=== PATIENT | male | born 1980 | race Caucasian/White ===

== ENCOUNTER 2017-09-16 19:08 | Emergency (ER) | payer OTHER ==
[~2017-09-16] VITALS: Ht 175.3 cm; Wt 80.7 kg
[2017-09-16] MEDS ORDERED: CITA20TA5 PO (19:32)
[2017-09-16 19:51] LABS: MEAN CORPUSCULAR HEMOGLOBIN 34.4 pg (27.5-34.5); MEAN CORPUSCULAR HGB CONC 34.4 g/dL (33.2-36.2); MEAN CORPUSCULAR VOLUME 100.1 fL (81-97); MEAN PLATELET VOLUME 7.5 fL (7.4-10.4); PLATELET COUNT 372 x10^3/uL (130-400); RED CELL DISTRIBUTION WIDTH 15.1 % (9.4-14.8)
[2017-09-16 19:55] LABS: ALANINE AMINOTRANSFERASE 30 U/L (12-78); ALBUMIN 3.9 g/dL (3.4-5.0); ANION GAP 7 mmol/L (5-15); CALCIUM 8.9 mg/dL (8.5-10.1); CHLORIDE 106 mmol/L (98-107); CREATININE 1.15 mg/dL (0.7-1.3)
[2017-09-16 19:57] LABS: ALKALINE PHOSPHATASE 73 U/L (45-117); BILIRUBIN,TOTAL 0.2 mg/dL (0.2-1.0); TOTAL PROTEIN 7.3 g/dL (6.4-8.2)
[2017-09-16 19:58] LABS: BASOPHILS # (AUTO) 0.04 x10^3/uL (0-0.1); BASOPHILS % (AUTO) 0 % (0-1); EOSINOPHILS # (AUTO) 0.48 x10^3/uL (0-0.4); EOSINOPHILS % (AUTO) 4 % (1-7); LYMPHOCYTES # (AUTO) 3.64 x10^3/uL (1-3.4); LYMPHOCYTES % (AUTO) 28 % (22-44); MONOCYTES # (AUTO) 0.88 x10^3/uL (0.2-0.8); MONOCYTES % (AUTO) 7 % (2-9); NEUTROPHILS # (AUTO) 7.99 x10^3/uL (1.8-6.8); NEUTROPHILS % (AUTO) 61 % (42-75)
[2017-09-16 19:59] LABS: MD NO
[2017-09-16 21:34] VITALS: BP 115/87
== END 2017-09-16 21:36 | disposition home or self-care (01) ==
LOC: ED 21:05
DX: R20.2 Paresthesia of skin (principal); D72.829 Elevated white blood cell count, unspecified; R11.2 Nausea with vomiting, unspecified
CPT/HCPCS: 36415; 70450; 80053; 85025; 93005; 99285

== ENCOUNTER 2017-11-12 08:20 | Inpatient (IN) | payer OTHER ==
[~2017-11-12] VITALS: Ht 175.3 cm; Wt 79.6 kg
[~2017-11-12 08:20] MED LIST: CITA20TA6 PO
[2017-11-12 10:06] VITALS: BP 102/67
[2017-11-12] MEDS ORDERED: HYDR-3307 PO (10:07)
[2017-11-12] MEDS ORDERED: POLYETHYLENE GLYCOL 17 GM PACKET PO PRN (11:00)
[2017-11-12] MEDS ORDERED: PLEASE ENTER HEIGHT AND WEIGHT MC SCH (11:00)
[2017-11-12] MEDS ORDERED: BISACODYL 10 MG SUPP PR PRN (11:00)
[2017-11-12] MEDS ORDERED: ACETAMINOPHEN 325 MG TABLET PO PRN (11:00)
[2017-11-12] MEDS ORDERED: hydrALAzine 20 MG/ML, 1ML IVPush PRN (11:00)
[2017-11-12] MEDS ORDERED: DOCUSATE 100 MG CAPSULE PO PRN (11:00)
[2017-11-12] MEDS ORDERED: ONDANSETRON 2MG/ML, 2ML IVPush PRN (11:00)
[2017-11-12 11:34] LABS: BASOPHILS # (AUTO) 0.06 x10^3/uL (0-0.1); BASOPHILS % (AUTO) 1 % (0-1); EOSINOPHILS # (AUTO) 0.36 x10^3/uL (0-0.4); EOSINOPHILS % (AUTO) 4 % (1-7); LYMPHOCYTES # (AUTO) 2.69 x10^3/uL (1-3.4); LYMPHOCYTES % (AUTO) 29 % (22-44); MD NO; MEAN CORPUSCULAR HEMOGLOBIN 33.7 pg (27.5-34.5); MEAN CORPUSCULAR HGB CONC 34.6 g/dL (33.2-36.2); MEAN CORPUSCULAR VOLUME 97.5 fL (81-97); MEAN PLATELET VOLUME 7.4 fL (7.4-10.4); MONOCYTES # (AUTO) 0.88 x10^3/uL (0.2-0.8); MONOCYTES % (AUTO) 9 % (2-9); NEUTROPHILS # (AUTO) 5.42 x10^3/uL (1.8-6.8); NEUTROPHILS % (AUTO) 58 % (42-75); PLATELET COUNT 358 x10^3/uL (130-400); RED BLOOD COUNT 4.31 x10^6/uL (4.38-5.82); RED CELL DISTRIBUTION WIDTH 12.9 % (9.4-14.8)
[2017-11-12 11:48] LABS: ALBUMIN 3.1 g/dL (3.4-5.0); ANION GAP 8 mmol/L (5-15); CALCIUM 8.6 mg/dL (8.5-10.1); CHLORIDE 107 mmol/L (98-107)
[2017-11-12 11:53] LABS: ALANINE AMINOTRANSFERASE 29 U/L (12-78); ALKALINE PHOSPHATASE 75 U/L (45-117); BILIRUBIN,TOTAL 0.4 mg/dL (0.2-1.0); CREATININE 0.99 mg/dL (0.7-1.3); TOTAL PROTEIN 6.2 g/dL (6.4-8.2)
[2017-11-12] MEDS: GABAPENTIN 300 MG CAPSULE PO SCH ×3 (12:23→20:26)
[2017-11-12] MEDS: ENOXAPARIN 40 MG/0.4 ML SQ SCH (12:23)
[2017-11-12] MEDS ORDERED: CALCIUM CHLORIDE 13.6 MEQ/10 ML IV PRN (14:30)
[2017-11-12] MEDS ORDERED: ALBUMIN HUMAN 5% 3,000 ML IV PRN (14:30)
[2017-11-12] MEDS: HYDROcodone/APAP 10/325 MG TABLET PO SCH ×2 (14:49→19:28)
[2017-11-12 14:50] VITALS: BP 106/73
[2017-11-12 18:56] VITALS: BP 106/70
[2017-11-12] MEDS: CITALOPRAM 20 MG TABLET PO SCH (20:26)
[2017-11-12] MEDS: SODIUM CHLORIDE FLUSH 10ML SYR IVF SCH (20:27)
[2017-11-13 00:58] VITALS: BP 104/67
[2017-11-13 04:47] LABS: BASOPHILS # (AUTO) 0.06 x10^3/uL (0-0.1); BASOPHILS % (AUTO) 1 % (0-1); EOSINOPHILS # (AUTO) 0.27 x10^3/uL (0-0.4); EOSINOPHILS % (AUTO) 3 % (1-7); LYMPHOCYTES # (AUTO) 2.92 x10^3/uL (1-3.4); LYMPHOCYTES % (AUTO) 31 % (22-44); MD NO; MEAN CORPUSCULAR HEMOGLOBIN 33.6 pg (27.5-34.5); MEAN CORPUSCULAR HGB CONC 34.2 g/dL (33.2-36.2); MEAN CORPUSCULAR VOLUME 98.2 fL (81-97); MEAN PLATELET VOLUME 7.8 fL (7.4-10.4); MONOCYTES # (AUTO) 0.95 x10^3/uL (0.2-0.8); MONOCYTES % (AUTO) 10 % (2-9); NEUTROPHILS # (AUTO) 5.37 x10^3/uL (1.8-6.8); NEUTROPHILS % (AUTO) 56 % (42-75); PLATELET COUNT 300 x10^3/uL (130-400); RED BLOOD COUNT 4.49 x10^6/uL (4.38-5.82)
[2017-11-13 04:57] LABS: ANION GAP 7 mmol/L (5-15); CALCIUM 7.9 mg/dL (8.5-10.1); CHLORIDE 113 mmol/L (98-107); CREATININE 0.91 mg/dL (0.7-1.3)
[2017-11-13 07:35] VITALS: BP 100/66
[2017-11-13] MEDS: SODIUM CHLORIDE FLUSH 10ML SYR IVF SCH ×2 (09:00→20:00)
[2017-11-13] MEDS: GABAPENTIN 300 MG CAPSULE PO SCH ×2 (09:22→15:52)
[2017-11-13] MEDS: HYDROcodone/APAP 10/325 MG TABLET PO SCH ×2 (09:22→15:52)
[2017-11-13] MEDS: ALBUMIN HUMAN 5% 3,000 ML IV PRN (10:05)
[2017-11-13] MEDS: CALCIUM CHLORIDE 13.6 MEQ/10 ML IV PRN (10:05)
[2017-11-13 14:01] VITALS: BP 105/72
[2017-11-13] MEDS: ENOXAPARIN 40 MG/0.4 ML SQ SCH (15:52)
[2017-11-13 18:32] VITALS: BP 116/70
[2017-11-13] MEDS: CITALOPRAM 20 MG TABLET PO SCH (20:00)
[2017-11-13] MEDS: NICOTINE 7 MG/24 HR PATCH.TD24 TD SCH (20:00)
[2017-11-14 00:04] VITALS: BP 105/66
[2017-11-14 01:06] VITALS: BP 119/84
[2017-11-14 07:31] VITALS: BP 117/80
[2017-11-14] MEDS: SODIUM CHLORIDE FLUSH 10ML SYR IVF SCH ×2 (08:31→21:13)
[2017-11-14] MEDS: GABAPENTIN 300 MG CAPSULE PO SCH ×4 (08:31→21:13)
[2017-11-14] MEDS: HYDROcodone/APAP 10/325 MG TABLET PO SCH ×4 (08:31→21:13)
[2017-11-14 09:44] LABS: MEAN CORPUSCULAR HEMOGLOBIN 33.9 pg (27.5-34.5); MEAN CORPUSCULAR HGB CONC 34.9 g/dL (33.2-36.2); MEAN CORPUSCULAR VOLUME 97.3 fL (81-97); MEAN PLATELET VOLUME 7.9 fL (7.4-10.4); PLATELET COUNT 319 x10^3/uL (130-400); RED BLOOD COUNT 4.74 x10^6/uL (4.38-5.82); RED CELL DISTRIBUTION WIDTH 12.9 % (9.4-14.8)
[2017-11-14 10:01] LABS: MD YES
[2017-11-14 10:03] LABS: BANDS%(MANUAL) 6 % (0-7)
[2017-11-14 10:04] LABS: BAND#(MANUAL) 0.74 x10^3/uL; BASOS#(MANUAL) 0.12 x10^3/uL (0-0.1); BASOS% (MANUAL) 1 % (0-1); EOS#(MANUAL) 0.37 x10^3/uL (0.0-0.4); EOS% (MANUAL) 3 % (1-7); LYMPH#(MANUAL) 2.85 x10^3/uL (1-3.4); LYMPHS% (MANUAL) 23 % (22-44); MONOS#(MANUAL) 0.62 x10^3/uL (0.3-2.7); MONOS% (MANUAL) 5 % (2-9); SEG#(MANUAL) 7.69 x10^3/uL (1.8-6.8); SEGS% (MANUAL) 62 % (42-75)
[2017-11-14 10:05] LABS: <PLATELET ESTIMATE> ADEQUATE; <PLT MORPHOLOGY> NORMAL PLT MORPH; <RBC MORPHOLOGY> NORMAL
[2017-11-14] MEDS: ALBUMIN HUMAN 5% 3,000 ML IV PRN (10:32)
[2017-11-14] MEDS: CALCIUM CHLORIDE 13.6 MEQ/10 ML IV PRN (10:32)
[2017-11-14] MEDS: ENOXAPARIN 40 MG/0.4 ML SQ SCH (13:43)
[2017-11-14 14:31] VITALS: BP 115/76
[2017-11-14 19:08] VITALS: BP 119/84
[2017-11-14] MEDS: NICOTINE 7 MG/24 HR PATCH.TD24 TD SCH (21:13)
[2017-11-14] MEDS: CITALOPRAM 20 MG TABLET PO SCH (21:13)
[2017-11-15 01:28] VITALS: BP 105/64
[2017-11-15 03:52] LABS: BASOPHILS # (AUTO) 0.05 x10^3/uL (0-0.1); BASOPHILS % (AUTO) 0 % (0-1); EOSINOPHILS % (AUTO) 3 % (1-7); LYMPHOCYTES # (AUTO) 3.06 x10^3/uL (1-3.4); LYMPHOCYTES % (AUTO) 26 % (22-44); MD NO; MEAN CORPUSCULAR HEMOGLOBIN 33.5 pg (27.5-34.5); MEAN CORPUSCULAR HGB CONC 34.4 g/dL (33.2-36.2); MEAN CORPUSCULAR VOLUME 97.3 fL (81-97); MEAN PLATELET VOLUME 7.8 fL (7.4-10.4); MONOCYTES # (AUTO) 1.24 x10^3/uL (0.2-0.8); MONOCYTES % (AUTO) 10 % (2-9); NEUTROPHILS # (AUTO) 7.28 x10^3/uL (1.8-6.8); NEUTROPHILS % (AUTO) 61 % (42-75); PLATELET COUNT 291 x10^3/uL (130-400); RED BLOOD COUNT 4.78 x10^6/uL (4.38-5.82); RED CELL DISTRIBUTION WIDTH 13.3 % (9.4-14.8)
[2017-11-15 03:58] LABS: ALBUMIN 4.3 g/dL (3.4-5.0); ANION GAP 9 mmol/L (5-15); CALCIUM 8.2 mg/dL (8.5-10.1); CHLORIDE 112 mmol/L (98-107); CREATININE 0.89 mg/dL (0.7-1.3)
[2017-11-15 06:45] VITALS: BP 111/75
[2017-11-15] MEDS ORDERED: ALBUMIN HUMAN 5%, 25G/500ML IV ONE (08:30)
[2017-11-15] MEDS: HYDROcodone/APAP 10/325 MG TABLET PO SCH ×3 (09:14→20:13)
[2017-11-15] MEDS: GABAPENTIN 300 MG CAPSULE PO SCH ×3 (09:14→21:05)
[2017-11-15] MEDS: SODIUM CHLORIDE FLUSH 10ML SYR IVF SCH ×2 (09:15→20:14)
[2017-11-15] MEDS: NICOTINE 14MG/24 HR PATCH.TD24 TD SCH (09:20)
[2017-11-15] MEDS: CALCIUM CHLORIDE 13.6 MEQ/10 ML IV PRN (10:08)
[2017-11-15 12:36] VITALS: BP 119/84
[2017-11-15] MEDS: ENOXAPARIN 40 MG/0.4 ML SQ SCH (13:48)
[2017-11-15] MEDS ORDERED: HYDROcodone/APAP 10/325 MG TABLET PO SCH (14:00)
[2017-11-15 20:00] VITALS: BP 119/82
[2017-11-15] MEDS: CITALOPRAM 20 MG TABLET PO SCH (20:13)
[2017-11-16 02:00] VITALS: BP 91/60
[2017-11-16 07:14] VITALS: BP 105/69
[2017-11-16] MEDS: SODIUM CHLORIDE FLUSH 10ML SYR IVF SCH (08:10)
[2017-11-16] MEDS: HYDROcodone/APAP 10/325 MG TABLET PO SCH ×2 (08:10→13:05)
[2017-11-16] MEDS: GABAPENTIN 300 MG CAPSULE PO SCH (08:10)
[2017-11-16] MEDS: NICOTINE 14MG/24 HR PATCH.TD24 TD SCH (08:11)
[2017-11-16] MEDS ORDERED: ALBUMIN HUMAN 5%, 25G/500ML IV ONE (08:30)
[2017-11-16 08:43] LABS: BASOPHILS # (AUTO) 0.08 x10^3/uL (0-0.1); BASOPHILS % (AUTO) 1 % (0-1); EOSINOPHILS % (AUTO) 1 % (1-7); LYMPHOCYTES # (AUTO) 2.35 x10^3/uL (1-3.4); LYMPHOCYTES % (AUTO) 16 % (22-44); MD NO; MEAN CORPUSCULAR HEMOGLOBIN 33.1 pg (27.5-34.5); MEAN CORPUSCULAR HGB CONC 34.1 g/dL (33.2-36.2); MEAN CORPUSCULAR VOLUME 97.1 fL (81-97); MEAN PLATELET VOLUME 7.9 fL (7.4-10.4); MONOCYTES # (AUTO) 1.41 x10^3/uL (0.2-0.8); MONOCYTES % (AUTO) 9 % (2-9); NEUTROPHILS % (AUTO) 73 % (42-75); PLATELET COUNT 282 x10^3/uL (130-400); RED BLOOD COUNT 4.73 x10^6/uL (4.38-5.82)
[2017-11-16] MEDS ORDERED: GABA300C10 PO (09:16)
[2017-11-16] MEDS: CALCIUM CHLORIDE 13.6 MEQ/10 ML IV PRN (09:30)
[2017-11-16 12:24] VITALS: BP 120/79
[2017-11-16] MEDS: ENOXAPARIN 40 MG/0.4 ML SQ SCH (13:00)
== END 2017-11-16 13:40 | disposition home or self-care (01) | DRG 59 ==
LOC: 4WST 08:34 → DCLOUNGE 11-16 11:16
PROVIDERS: ADMIT Internal Medicine; ATTEND Family Medicine
PROC: 02HV33Z Insertion of Infusion Device into Superior Vena Cava, Percutaneous Approach (ICD-10-PCS; principal; 2017-11-12)
PROC: B548ZZA Ultrasonography of Superior Vena Cava, Guidance (ICD-10-PCS; 2017-11-12)
PROC: 6A551Z3 Pheresis of Plasma, Multiple (ICD-10-PCS; 2017-11-16)
DX: G35 Multiple sclerosis (principal); G36.0 Neuromyelitis optica [Devic]; E44.0 Moderate protein-calorie malnutrition; E87.3 Alkalosis; G95.9 Disease of spinal cord, unspecified; F17.210 Nicotine dependence, cigarettes, uncomplicated; F32.9 Major depressive disorder, single episode, unspecified; Z79.899 Other long term (current) drug therapy; Z91.81 History of falling; Z68.25 Body mass index [BMI] 25.0-25.9, adult; G62.9 Polyneuropathy, unspecified
CPT/HCPCS: 36415; 36514; 36556; 76937; 77001; 80048; 80053; 82040; 85025; 86704; 86706; 86803; 87340; J1650; P9045; C1751; J1642

== ENCOUNTER 2018-07-02 18:07 | Inpatient (IN) | payer OTHER ==
[~2018-07-02] VITALS: Ht 175.3 cm; Wt 79.1 kg
[~2018-07-02 18:07] MED LIST changes: +GABA300C10 PO; +HYDR-3307 PO
--- NOTE | 2018-07-02 18:28 | NUR ---
FIRST CONTACT WITH PATIENT. IN TO ASSESS PATIENT, PT NOT IN GOWN. PT ASKED TO CHANGE INTO GOWN. THIS RN LEFT ROOM FOR PRIVACY
--- NOTE | 2018-07-02 18:31 | NUR ---
38 Y/O MALE PRESENTS TO ED WITH C/O COUGH "SIX MONTHS AGO I GOT DIAGNOSED WITH TRANSVERSE MYLEITIS. I WENT TO [place], GOT A COUGH AND CAME HOME AND THIS COUGH ISN'T GOING AWAY. IT'S BEEN FOR ABOUT 10 DAYS. WHEN I LAY DOWN IT'S ALL GURGGLY. I WANT TO MAKE SURE IT'S NOT PNA. MY TEMPERATURE IS OFF AND ON." EDMD BEDSIDE. NO ACUTE DISTRESS NOTED. PT PLACED ON CONT PULSE OX,NIBP. NO C/O N/V/D, TRAUMA, SYNCOPE, CP.
--- NOTE | 2018-07-02 18:39 | NUR ---
PT PLACED ON [employer] SUPERINTENDENT.
--- NOTE | 2018-07-02 18:41 | NUR ---
PT TO IMAGING
[2018-07-02] MEDS ORDERED: ACETAMINOPHEN 325 MG TABLET ONE (18:44)
--- NOTE | 2018-07-02 18:47 | NUR ---
PT BACK FROM IMAGING
[2018-07-02] MEDS ORDERED: ACETAMINOPHEN 325 MG TABLET PO ONE (19:00)
[2018-07-02] MEDS ORDERED: CEFTRIAXONE 1,000 MG in SODIUM CHLORIDE 0.9% 50 ML IVPB ONE (19:00)
[2018-07-02] MEDS ORDERED: SODIUM CHLORIDE FLUSH 10ML SYR IVF ONE (19:00)
[2018-07-02] MEDS ORDERED: AZITHROMYCIN 500 MG in SODIUM CHLORIDE 0.9% 250 ML IVPB ONE (19:00)
--- NOTE | 2018-07-02 19:00 | NUR ---
BEDSIDE REPORT TO SURENDRA CAPELLAN.
[2018-07-02 19:16] LABS: MEAN CORPUSCULAR HEMOGLOBIN 30.7 pg (27.5-34.5); MEAN CORPUSCULAR HGB CONC 33.9 g/dL (33.2-36.2); MEAN CORPUSCULAR VOLUME 90.6 fL (81-97); MEAN PLATELET VOLUME 6.4 fL (7.4-10.4); PLATELET COUNT 958 x10^3/uL (130-400); RED BLOOD COUNT 4.02 x10^6/uL (4.38-5.82); RED CELL DISTRIBUTION WIDTH 14.5 % (9.4-14.8)
[2018-07-02 19:22] LABS: INTERNATIONAL NORMALIZED RATIO 1.22 (0.93-1.1); PROTHROMBIN TIME 12.7 Seconds (9.6-11.5)
[2018-07-02 19:23] LABS: ALANINE AMINOTRANSFERASE 72 U/L (12-78); ALBUMIN 2.6 g/dL (3.4-5.0); ANION GAP 9 mmol/L (5-15); CALCIUM 8.5 mg/dL (8.5-10.1); CHLORIDE 104 mmol/L (98-107)
[2018-07-02 19:26] LABS: ALKALINE PHOSPHATASE 99 U/L (45-117); BILIRUBIN,TOTAL 0.5 mg/dL (0.2-1.0); CREATININE 1.12 mg/dL (0.7-1.3)
[2018-07-02 19:36] LABS: MD YES
[2018-07-02 19:38] LABS: <RBC MORPHOLOGY> NORMAL; BAND#(MANUAL) 1.58 x10^3/uL; BANDS%(MANUAL) 7 % (0-7); LYMPH#(MANUAL) 2.71 x10^3/uL (1-3.4); LYMPHS% (MANUAL) 12 % (22-44); MONOS#(MANUAL) 0.23 x10^3/uL (0.3-2.7); MONOS% (MANUAL) 1 % (2-9); SEG#(MANUAL) 18.08 x10^3/uL (1.8-6.8); SEGS% (MANUAL) 80 % (42-75)
[2018-07-02 19:39] LABS: <PLATELET ESTIMATE> INCREASED; <PLT MORPHOLOGY> NORMAL PLT MORPH
[2018-07-02] MEDS ORDERED: LAMO200T3 PO (19:44)
--- NOTE | 2018-07-02 19:52 | NUR ---
REPORT OF PT FROM SURENDRA VERDUGO. ASSUMING CARE OF PT AT THIS TIME. IV ACCESS OBTAINED. PT MEDICATED FOR FEVER PER JUN.
[2018-07-02] MEDS ORDERED: SODIUM CHLORIDE FLUSH 10ML SYR IVF PRN (20:00)
--- NOTE | 2018-07-02 20:18 | NUR ---
REPORT GIVEN TO YAEL AGOSTO, PT READY FOR TRANSPORT TO FLOOR
[2018-07-02 20:48] VITALS: BP 99/67
[2018-07-02] MEDS ORDERED: ACETAMINOPHEN 325 MG TABLET PO PRN (21:00)
[2018-07-02] MEDS ORDERED: ONDANSETRON ODT 4 MG PO PRN (21:00)
[2018-07-02] MEDS ORDERED: CEFTRIAXONE PMX 1GM/50ML 50 ML IV ONE (21:00)
[2018-07-02] MEDS ORDERED: TEMAZEPAM 15 MG CAPSULE PO PRN (21:00)
[2018-07-02] MEDS ORDERED: DOCUSATE 100 MG CAPSULE PO PRN (21:00)
[2018-07-02] MEDS ORDERED: CITALOPRAM 20 MG TABLET PO SCH (21:00)
[2018-07-02] MEDS: SODIUM CHLORIDE 0.9% 1,000 ML IV SCH (21:36)
[2018-07-02] MEDS: CEFTRIAXONE PMX 2GM/50ML 50 ML IV SCH (21:44)
[2018-07-02] MEDS: NICOTINE 14MG/24 HR PATCH.TD24 TD SCH (22:05)
[2018-07-02] MEDS: GABAPENTIN 300 MG CAPSULE PO SCH (22:05)
[2018-07-02] MEDS: OXYcodone/APAP 10/325MG TABLET PO PRN (22:53)
[2018-07-02] MEDS: AZITHROMYCIN 500 MG in SODIUM CHLORIDE 0.9% 250 ML IV SCH (22:54)
[2018-07-02] MEDS: LAMOTRIGINE 200 MG TABLET PO SCH (23:02)
[2018-07-03 01:43] VITALS: BP 109/71
[2018-07-03 03:18] LABS: MICROSCOPIC NOT IND
[2018-07-03 03:21] LABS: CULTURE INDICATED? NO
[2018-07-03 04:33] LABS: MEAN CORPUSCULAR HEMOGLOBIN 30.5 pg (27.5-34.5); MEAN CORPUSCULAR HGB CONC 33.6 g/dL (33.2-36.2); MEAN CORPUSCULAR VOLUME 90.7 fL (81-97); MEAN PLATELET VOLUME 6.5 fL (7.4-10.4); PLATELET COUNT 751 x10^3/uL (130-400); RED BLOOD COUNT 3.46 x10^6/uL (4.38-5.82); RED CELL DISTRIBUTION WIDTH 14.3 % (9.4-14.8)
[2018-07-03 04:50] LABS: ANION GAP 5 mmol/L (5-15); CALCIUM 7.7 mg/dL (8.5-10.1); CHLORIDE 107 mmol/L (98-107); CREATININE 1.03 mg/dL (0.7-1.3)
[2018-07-03 05:39] LABS: MD YES
[2018-07-03 05:41] LABS: BANDS%(MANUAL) 5 % (0-7); EOS% (MANUAL) 3 % (1-7); LYMPH#(MANUAL) 1.99 x10^3/uL (1-3.4); LYMPHS% (MANUAL) 10 % (22-44); MONOS#(MANUAL) 1.39 x10^3/uL (0.3-2.7); MONOS% (MANUAL) 7 % (2-9); SEG#(MANUAL) 14.93 x10^3/uL (1.8-6.8); SEGS% (MANUAL) 75 % (42-75)
[2018-07-03 05:43] LABS: <PLATELET ESTIMATE> INCREASED; <PLT MORPHOLOGY> NORMAL PLT MORPH; POLYCHROMASIA 1+
[2018-07-03] MEDS: OXYcodone/APAP 10/325MG TABLET PO PRN ×4 (08:17→23:28)
[2018-07-03] MEDS: GABAPENTIN 300 MG CAPSULE PO SCH ×3 (08:18→21:26)
[2018-07-03] MEDS: SODIUM CHLORIDE 0.9% 1,000 ML IV SCH ×2 (08:18→21:26)
[2018-07-03] MEDS: CITALOPRAM 20 MG TABLET PO SCH (08:18)
[2018-07-03] MEDS ORDERED: LAMOTRIGINE 200 MG TABLET PO SCH (09:00)
[2018-07-03 13:00] VITALS: BP 98/65
[2018-07-03 19:31] VITALS: BP 117/71
[2018-07-03] MEDS: LAMOTRIGINE 200 MG TABLET PO SCH (21:25)
[2018-07-03] MEDS: NICOTINE 14MG/24 HR PATCH.TD24 TD SCH (21:25)
[2018-07-03] MEDS: CEFTRIAXONE PMX 2GM/50ML 50 ML IV SCH (21:35)
[2018-07-03] MEDS: AZITHROMYCIN 500 MG in SODIUM CHLORIDE 0.9% 250 ML IV SCH (23:28)
[2018-07-04] MEDS: SODIUM CHLORIDE 0.9% 1,000 ML IV SCH ×3 (05:43→21:23)
[2018-07-04 05:48] VITALS: BP 100/66
[2018-07-04 07:58] LABS: MEAN CORPUSCULAR HEMOGLOBIN 29.8 pg (27.5-34.5); MEAN CORPUSCULAR HGB CONC 32.5 g/dL (33.2-36.2); MEAN CORPUSCULAR VOLUME 91.6 fL (81-97); MEAN PLATELET VOLUME 6.3 fL (7.4-10.4); PLATELET COUNT 793 x10^3/uL (130-400); RED BLOOD COUNT 3.55 x10^6/uL (4.38-5.82); RED CELL DISTRIBUTION WIDTH 14.8 % (9.4-14.8)
[2018-07-04 08:21] VITALS: BP 97/60
[2018-07-04 08:23] LABS: BASOPHILS # (AUTO) 0.05 x10^3/uL (0-0.1); BASOPHILS % (AUTO) 0 % (0-1); EOSINOPHILS # (AUTO) 0.12 x10^3/uL (0-0.4); EOSINOPHILS % (AUTO) 1 % (1-7); LYMPHOCYTES # (AUTO) 1.88 x10^3/uL (1-3.4); LYMPHOCYTES % (AUTO) 12 % (22-44); MD SCAN; MONOCYTES # (AUTO) 0.97 x10^3/uL (0.2-0.8); MONOCYTES % (AUTO) 6 % (2-9); NEUTROPHILS # (AUTO) 13.24 x10^3/uL (1.8-6.8); NEUTROPHILS % (AUTO) 82 % (42-75)
[2018-07-04] MEDS: OXYcodone/APAP 10/325MG TABLET PO PRN ×4 (08:59→21:28)
[2018-07-04] MEDS: CITALOPRAM 20 MG TABLET PO SCH (08:59)
[2018-07-04] MEDS: GABAPENTIN 300 MG CAPSULE PO SCH ×3 (08:59→21:22)
[2018-07-04] MEDS ORDERED: MORPHINE SULFATE 4 MG/ML, 1ML IVPush ONE (09:30)
[2018-07-04] MEDS: LIDODERM 5% PATCH TD PRN (09:40)
[2018-07-04 13:07] VITALS: BP 96/61
[2018-07-04] MEDS: NICOTINE 14MG/24 HR PATCH.TD24 TD SCH (21:22)
[2018-07-04] MEDS: LAMOTRIGINE 200 MG TABLET PO SCH (21:23)
[2018-07-04] MEDS: CEFTRIAXONE PMX 2GM/50ML 50 ML IV SCH (21:28)
[2018-07-04 21:36] VITALS: BP 107/73
[2018-07-04] MEDS: AZITHROMYCIN 500 MG in SODIUM CHLORIDE 0.9% 250 ML IV SCH (23:25)
[2018-07-05] MEDS: OXYcodone/APAP 10/325MG TABLET PO PRN ×5 (03:15→21:40)
[2018-07-05 03:18] VITALS: BP 107/70
[2018-07-05] MEDS: SODIUM CHLORIDE 0.9% 1,000 ML IV SCH ×2 (06:23→16:13)
[2018-07-05] MEDS: CITALOPRAM 20 MG TABLET PO SCH (07:40)
[2018-07-05] MEDS: GABAPENTIN 300 MG CAPSULE PO SCH ×3 (07:40→21:40)
[2018-07-05 07:44] VITALS: BP 100/69
[2018-07-05 12:09] VITALS: BP 92/57
[2018-07-05 13:34] LABS: BASOPHILS # (AUTO) 0.15 x10^3/uL (0-0.1); BASOPHILS % (AUTO) 1 % (0-1); EOSINOPHILS # (AUTO) 0.16 x10^3/uL (0-0.4); EOSINOPHILS % (AUTO) 1 % (1-7); LYMPHOCYTES # (AUTO) 2.35 x10^3/uL (1-3.4); LYMPHOCYTES % (AUTO) 17 % (22-44); MD NO; MEAN CORPUSCULAR HEMOGLOBIN 29.1 pg (27.5-34.5); MEAN CORPUSCULAR HGB CONC 31.8 g/dL (33.2-36.2); MEAN CORPUSCULAR VOLUME 91.4 fL (81-97); MEAN PLATELET VOLUME 6.2 fL (7.4-10.4); MONOCYTES # (AUTO) 0.83 x10^3/uL (0.2-0.8); MONOCYTES % (AUTO) 6 % (2-9); NEUTROPHILS # (AUTO) 10.77 x10^3/uL (1.8-6.8); NEUTROPHILS % (AUTO) 76 % (42-75); PLATELET COUNT 842 x10^3/uL (130-400); RED BLOOD COUNT 3.33 x10^6/uL (4.38-5.82); RED CELL DISTRIBUTION WIDTH 14.9 % (9.4-14.8)
[2018-07-05] MEDS: NICOTINE 14MG/24 HR PATCH.TD24 TD SCH (21:40)
[2018-07-05] MEDS: LAMOTRIGINE 200 MG TABLET PO SCH (21:40)
[2018-07-05 21:42] VITALS: BP 91/57
[2018-07-05] MEDS: CEFTRIAXONE PMX 2GM/50ML 50 ML IV SCH ×2 (22:02→23:44)
[2018-07-05] MEDS: LIDODERM 5% PATCH TD PRN (22:02)
[2018-07-05] MEDS: AZITHROMYCIN 500 MG in SODIUM CHLORIDE 0.9% 250 ML IV SCH (23:28)
[2018-07-06] MEDS: OXYcodone/APAP 10/325MG TABLET PO PRN ×6 (01:33→20:36)
[2018-07-06 01:34] VITALS: BP 96/68
[2018-07-06] MEDS: SODIUM CHLORIDE 0.9% 1,000 ML IV SCH ×3 (03:12→20:36)
[2018-07-06 08:04] VITALS: BP 104/70
[2018-07-06 08:23] LABS: BASOPHILS # (AUTO) 0.08 x10^3/uL (0-0.1); BASOPHILS % (AUTO) 1 % (0-1); EOSINOPHILS # (AUTO) 0.18 x10^3/uL (0-0.4); EOSINOPHILS % (AUTO) 2 % (1-7); LYMPHOCYTES # (AUTO) 2.56 x10^3/uL (1-3.4); LYMPHOCYTES % (AUTO) 23 % (22-44); MD NO; MEAN CORPUSCULAR HEMOGLOBIN 30.1 pg (27.5-34.5); MEAN CORPUSCULAR HGB CONC 32.8 g/dL (33.2-36.2); MEAN CORPUSCULAR VOLUME 91.6 fL (81-97); MONOCYTES # (AUTO) 0.69 x10^3/uL (0.2-0.8); MONOCYTES % (AUTO) 6 % (2-9); NEUTROPHILS # (AUTO) 7.59 x10^3/uL (1.8-6.8); NEUTROPHILS % (AUTO) 68 % (42-75); PLATELET COUNT 983 x10^3/uL (130-400); RED CELL DISTRIBUTION WIDTH 14.6 % (9.4-14.8)
[2018-07-06 08:33] LABS: ALBUMIN 2.3 g/dL (3.4-5.0); ANION GAP 5 mmol/L (5-15); CALCIUM 8.5 mg/dL (8.5-10.1); CHLORIDE 107 mmol/L (98-107); CREATININE 0.91 mg/dL (0.7-1.3)
[2018-07-06] MEDS: GABAPENTIN 300 MG CAPSULE PO SCH ×3 (09:42→20:36)
[2018-07-06] MEDS: CITALOPRAM 20 MG TABLET PO SCH (09:42)
[2018-07-06 15:50] VITALS: BP 104/68
[2018-07-06 20:29] VITALS: BP 121/76
[2018-07-06] MEDS: LAMOTRIGINE 200 MG TABLET PO SCH (20:36)
[2018-07-06] MEDS: NICOTINE 14MG/24 HR PATCH.TD24 TD SCH (20:36)
[2018-07-06] MEDS: CEFTRIAXONE PMX 2GM/50ML 50 ML IV SCH (22:43)
[2018-07-06] MEDS: LIDODERM 5% PATCH TD PRN (22:43)
[2018-07-07] MEDS: OXYcodone/APAP 10/325MG TABLET PO PRN ×6 (00:34→22:51)
[2018-07-07 01:28] VITALS: BP 98/64
[2018-07-07] MEDS: SODIUM CHLORIDE 0.9% 1,000 ML IV SCH ×2 (04:33→16:28)
[2018-07-07 07:42] VITALS: BP 99/64
[2018-07-07 08:44] LABS: ALBUMIN 2.3 g/dL (3.4-5.0); ANION GAP 4 mmol/L (5-15); CALCIUM 8.6 mg/dL (8.5-10.1); CHLORIDE 107 mmol/L (98-107); CREATININE 0.99 mg/dL (0.7-1.3)
[2018-07-07] MEDS: CITALOPRAM 20 MG TABLET PO SCH (09:25)
[2018-07-07] MEDS: GABAPENTIN 300 MG CAPSULE PO SCH ×3 (09:25→20:09)
[2018-07-07 09:44] LABS: BASOPHILS # (AUTO) 0.07 x10^3/uL (0-0.1); BASOPHILS % (AUTO) 1 % (0-1); EOSINOPHILS # (AUTO) 0.22 x10^3/uL (0-0.4); EOSINOPHILS % (AUTO) 2 % (1-7); LYMPHOCYTES # (AUTO) 2.33 x10^3/uL (1-3.4); LYMPHOCYTES % (AUTO) 18 % (22-44); MD SCAN; MEAN CORPUSCULAR HEMOGLOBIN 29.8 pg (27.5-34.5); MEAN CORPUSCULAR HGB CONC 32.8 g/dL (33.2-36.2); MEAN PLATELET VOLUME 5.9 fL (7.4-10.4); MONOCYTES # (AUTO) 0.83 x10^3/uL (0.2-0.8); MONOCYTES % (AUTO) 7 % (2-9); NEUTROPHILS # (AUTO) 9.42 x10^3/uL (1.8-6.8); NEUTROPHILS % (AUTO) 73 % (42-75); RED BLOOD COUNT 3.72 x10^6/uL (4.38-5.82); RED CELL DISTRIBUTION WIDTH 14.9 % (9.4-14.8)
[2018-07-07 09:45] LABS: PLATELET COUNT 1015 x10^3/uL (130-400)
[2018-07-07] MEDS: CEFUROXIME 500 MG TABLET PO SCH ×2 (10:33→20:10)
[2018-07-07 12:25] VITALS: BP 92/57
[2018-07-07 14:46] LABS: BASOPHILS # (AUTO) 0.28 x10^3/uL (0-0.1); BASOPHILS % (AUTO) 2 % (0-1); EOSINOPHILS # (AUTO) 0.23 x10^3/uL (0-0.4); EOSINOPHILS % (AUTO) 2 % (1-7); LYMPHOCYTES # (AUTO) 2.28 x10^3/uL (1-3.4); LYMPHOCYTES % (AUTO) 18 % (22-44); MD NO; MEAN CORPUSCULAR HEMOGLOBIN 30.6 pg (27.5-34.5); MEAN CORPUSCULAR HGB CONC 33.6 g/dL (33.2-36.2); MEAN PLATELET VOLUME 6.2 fL (7.4-10.4); MONOCYTES # (AUTO) 0.71 x10^3/uL (0.2-0.8); MONOCYTES % (AUTO) 6 % (2-9); NEUTROPHILS # (AUTO) 9.07 x10^3/uL (1.8-6.8); NEUTROPHILS % (AUTO) 72 % (42-75); PLATELET COUNT 852 x10^3/uL (130-400); RED CELL DISTRIBUTION WIDTH 14.7 % (9.4-14.8)
[2018-07-07] MEDS: AZITHROMYCIN 500 MG TABLET PO SCH (16:28)
[2018-07-07 20:04] VITALS: BP 106/72
[2018-07-07] MEDS: NICOTINE 14MG/24 HR PATCH.TD24 TD SCH (20:10)
[2018-07-07] MEDS: LAMOTRIGINE 200 MG TABLET PO SCH (20:10)
[2018-07-08] MEDS: SODIUM CHLORIDE 0.9% 1,000 ML IV SCH ×2 (00:32→08:26)
[2018-07-08 00:37] VITALS: BP 110/78
[2018-07-08] MEDS: OXYcodone/APAP 10/325MG TABLET PO PRN ×2 (03:42→08:34)
[2018-07-08 07:39] VITALS: BP 105/71
[2018-07-08] MEDS: GABAPENTIN 300 MG CAPSULE PO SCH (08:26)
[2018-07-08] MEDS: CITALOPRAM 20 MG TABLET PO SCH (08:26)
[2018-07-08] MEDS: AZITHROMYCIN 500 MG TABLET PO SCH (08:26)
[2018-07-08] MEDS: CEFUROXIME 500 MG TABLET PO SCH (08:26)
[2018-07-08] MEDS ORDERED: CEFU500T50 PO (11:19)
[2018-07-08] MEDS ORDERED: NICO-486 TD (11:19)
[2018-07-08] MEDS ORDERED: AZIT500T5 PO (11:19)
== END 2018-07-08 13:34 | disposition home or self-care (01) | DRG 871 ==
LOC: ED 19:50 → EDIP 19:55 → ED 20:00 → 3NE 20:45 → DCLOUNGE 07-08 13:21
PROVIDERS: ADMIT Family Medicine; ATTEND Family Medicine
DX: A41.9 Sepsis, unspecified organism (principal); J15.9 Unspecified bacterial pneumonia; F33.9 Major depressive disorder, recurrent, unspecified; F17.210 Nicotine dependence, cigarettes, uncomplicated; G40.909 Epilepsy, unspecified, not intractable, without status epilepticus; G89.29 Other chronic pain; Z79.891 Long term (current) use of opiate analgesic; Z82.3 Family history of stroke; G62.9 Polyneuropathy, unspecified; Z71.6 Tobacco abuse counseling
CPT/HCPCS: 36415; 71045; 71046; 80048; 80053; 80069; 81003; 83605; 84145; 85025; 85610; 85730; 86480; 87015; 87040; 87070; 87116; 87205; 87206; 93005; 99285; G0378; J0456; J0696; J7030; J7050

== ENCOUNTER → 2018-09-13 | Outpatient (CLI) | payer MEDICAID ==
[~2018-09-13] MED LIST changes: +AZIT500T5 PO; +CEFU500T50 PO; +GADOBUTROL 7.5 MMOL/7.5 ML PFS ONE; +LAMO200T3 PO; +NICO-486 TD
== END | disposition home or self-care (01) ==
LOC: CFH 13:15
PROVIDERS: ATTEND Psychiatry & Neurology Neurology
DX: M47.814 Spondylosis without myelopathy or radiculopathy, thoracic region (principal); M51.24 Other intervertebral disc displacement, thoracic region; M47.812 Spondylosis without myelopathy or radiculopathy, cervical region
CPT/HCPCS: 72156; 72157; A9585